=== PATIENT | female | born 1985 | race Caucasian/White ===

== ENCOUNTER → 2018-06-05 08:21 | Outpatient (CLI) | payer MEDICARE ==
[2011-03-06 07:05] VITALS: BMI 58.1
== END | disposition home or self-care (01) ==
LOC: D.MRI 08:21
DX: M54.16 Radiculopathy, lumbar region (principal)

== ENCOUNTER → 2018-12-05 13:33 | Outpatient (CLI) | payer MEDICARE ==
[2011-03-06 07:05] VITALS: BMI 58.1
== END | disposition home or self-care (01) ==
LOC: D.MRI 13:33
DX: M25.551 Pain in right hip (principal)